=== PATIENT | male | born 1995 | race Caucasian/White ===

== ENCOUNTER 2017-11-14 12:25 | Emergency (ER) | payer OTHER ==
[~2017-11-14] VITALS: Ht 170.2 cm; Wt 66.7 kg
[2017-11-14 12:34] VITALS: BP 140/65; Ht 170.2 cm; Wt 66.7 kg
== END 2017-11-14 14:47 | disposition home or self-care (01) ==
LOC: ED 12:25
DX: S83.91XA Sprain of unspecified site of right knee, initial encounter (principal); W01.0XXA Fall on same level from slipping, tripping and stumbling without subsequent striking against object, initial encounter; Y93.66 Activity, soccer; Y92.89 Other specified places as the place of occurrence of the external cause; Y99.8 Other external cause status
CPT/HCPCS: Q0092